=== PATIENT | male | born 1975 | race Caucasian/White ===

== ENCOUNTER 2016-10-12 12:05 | Emergency (ER) | payer BC ==
[2016-10-12] MEDS ORDERED: KETOROLAC 30 MG/ML VIAL (J1885) As Ordered ONE (13:00)
[2016-10-12] MEDS ORDERED: ONDANSETRON 4MG/2ML VIAL (J2405) As Ordered ONE (13:00)
[2016-10-12 13:23] LABS: BASO # 0.1 K/mm3 (0.0-0.2); BASO % 0.6 % (0.0-1.0); EOS # 0.3 K/mm3 (0.0-0.50); EOS % 2.4 % (0.0-3.0); LARGE UNSTAINED CELL # 0.1 K/mm3 (0.0-0.4); LARGE UNSTAINED CELL % 1.3 % (0.0-4.0); LYMPH # 2.3 K/mm3 (1.5-4.5); MEAN CORPUSCULAR HEMOGLOBIN 30.1 pg (27.0-33.0); MEAN CORPUSCULAR HGB CONC 34.9 g/dl (32.0-36.5); MEAN CORPUSCULAR VOLUME 86.2 fl (80.0-96.0); MONO # 0.6 K/mm3 (0.0-0.8); MONO % 4.9 % (0.0-5.0); NEUTROPHILS # 7.8 K/mm3 (1.8-7.7); NEUTROPHILS % 69.7 % (36.0-66.0); PLATELET COUNT, AUTOMATED 196 k/mm3 (150-450); RED CELL DISTRIBUTION WIDTH 12.6 % (11.5-14.5); WHITE BLOOD COUNT 11.1 K/mm3 (4.0-10.0)
--- NOTE | 2016-10-12 13:26 | REP ---
Clinical: Renal colic and right flank pain. Findings: Lung bases clear. Visualized heart and pericardium normal. Fatty infiltration to the liver. Spleen, pancreas, gallbladder, bilateral adrenal glands and kidneys are normal for noncontrast evaluation. Specifically, no perinephric stranding, hydroureteronephrosis, intrarenal or obstructing ureteral calculi noted. Bilateral ureters and bladder are normal. The enteric system is without obstruction or acute inflammatory process. Normal terminal ileum and appendix are identified in the right lower quadrant. Pelvis demonstrates normal bladder and age appropriate prostate/seminal vesicles. No pelvic fluid or ascites. No free air. No adenopathy. Surrounding musculoskeletal structures intact. Impression: Fatty infiltration to the liver. No acute intra-abdominal or pelvic pathology appreciated. Signed by Sterling Yadav MD 10/12/2016 01:18 P
[2016-10-12 13:35] LABS: ALBUMIN 4.4 GM/DL (3.2-5.2); ALBUMIN/GLOBULIN RATIO 1.16 (1.00-1.93); ALKALINE PHOSPHATASE 74 U/L (45-117); ALT/SGPT 87 U/L (12-78); AMYLASE 37 U/L (25-115); ANION GAP 8 MEQ/L (8-16); AST/SGOT 31 U/L (15-37); BILIRUBIN,DIRECT < 0.1 MG/DL (0.0-0.2); BILIRUBIN,TOTAL 0.4 MG/DL (0.2-1.0); BLOOD UREA NITROGEN 18 MG/DL (7-18); CALCIUM LEVEL 8.8 MG/DL (8.5-10.1); CARBON DIOXIDE LEVEL 27 MEQ/L (21-32); CHLORIDE LEVEL 106 MEQ/L (98-107); GLOMERULAR FILTRATION RATE > 60.0 (>60); GLUCOSE, FASTING 83 MG/DL (70-105); POTASSIUM SERUM 3.8 MEQ/L (3.5-5.1); SODIUM LEVEL 141 MEQ/L (136-145); TOTAL PROTEIN 8.2 GM/DL (6.4-8.2)
--- NOTE | 2016-10-12 15:27 | EDDOCDS ---
Nurse's Notes [facility] Name: Baljinder Monson Age: 40 yrs Sex: Male : 1975 Arrival Date: 10/12/2016 Time: 12:05 Bed I3 / M3 Private MD: Amauri - Complete Info On Cds Diagnosis: Lower abdominal pain, unspecified-RLQ with Right Flankl Pain;Fatty (change of) liver, not elsewhere classified Presentation: 10/12 12:08 Presenting complaint: Patient states: Right lower back pain radiates to Right lower rs3 quadrant, right leg, tingling in right leg. denies numbness. no known injury. Acute neurological deficits are not present. Mechanism of Injury: No Mechanism of Injury. Adult Sepsis Screening: The patient does not have new or worsening altered mentation. Patient's respiratory rate is less than 22. Systolic blood pressure is greater than 100. Patient has a qSOFA score of 0- Negative Sepsis Screen. Suicide/Homicide risk assessment- the patient denies having any suicidal and/or homicidal ideations and does not present with any other emotional, behavioral or mental health complaints. Status: Patient is not a service station manager or dependent. Transition of care: patient was not received from another setting of care. 12:08 Acuity: SURJIT Level 4 rs3 12:08 Method Of Arrival: Walkin/Carried/Asstd rs3 12:47 Acuity level changed due to complexity of care. jo3 12:47 Acuity: SURJIT Level 3 jo3 Triage Assessment: 12:10 General: Appears in no apparent distress. Pain: Location: lumbar area. HIV screening NA rs3 for this visit Offered previously. Musculoskeletal: Reports Pain is 7 out of 10 on a pain scale. Historical: - Allergies: no known allergies; - Home Meds: 1. Protonix 40 mg Oral TbEC once daily - PMHx: GERD; - PSHx: Hernia repair- Right inguinal; - Social history: Smoking status: Patient states was never smoker of tobacco. No barriers to communication noted, The patient speaks fluent Filipino. - Family history: Not pertinent. - : The pt / caregiver states he / she is not on anticoagulants. Home medication list is obtained from the patient. - Exposure Risk Screening:: None identified. Screenin:45 Screening information is obtained from the patient. Fall risk: No risks identified. mk4 Assistance ADL's: requires no assistance with activities of daily living. Abuse/DV Screen: The patient / caregiver reports he/she is: not in a situation that causes fear, pain or injury. Nutritional screening: No deficits noted. Advance Directives: Currently, there is no health care proxy. There is no active DNR order. There is no living will. There is no Power of Line Helper. Advance directive information has not previously been placed in an [facility] medical record. Further advance directive information is declined. home support is adequate. Assessment: 12:45 General: Appears uncomfortable. Pain: Location: lumbar area Pain currently is 10 out of mk4 10 on a pain scale. Pain began 2-3 days ago. Neurological: Level of Consciousness is awake, alert. : Denies inability to void, incontinence. Musculoskeletal: No deficits noted. 13:40 General:. mk4 14:48 Reassessment: Patient states feeling better. Patient states symptoms have improved. mk4 General: Appears in no apparent distress, comfortable. 15:25 Reassessment: Patient appears in no apparent distress at this time. Pain: Pain kr3 currently is 2 out of 10 on a pain scale. Respiratory: Respiratory effort is even, unlabored. Derm: Skin is normal. Vital Signs: 12:07 BP 147 / 66 RA Sitting (auto/lg); Pulse 82; Resp 16; Temp 98.8(O); Pulse Ox 94% on R/A; b Weight 108.86 kg (R); Height 5 ft. 11 in. (180.34 cm) (R); Pain 8/10; 15:23 Pain 2/10; kr3 15:24 BP 136 / 77; Pulse 58; Resp 16; Temp 98.2(O); Pulse Ox 96% on R/A; Pain 2/10; kr3 12:07 Body Mass Index 33.47 (108.86 kg, 180.34 cm) [facility] Vitals: 12:07 Log In Time: October 12, 2016 at 12:05. [facility] ED Course: 12:06 Patient visited by Leyda Simmons PCA. bnb 12:06 Patient moved to Waiting bnb 12:07 Other - Complete Info On Cds is Private Physician. bnb 12:08 Patient moved to Pre RCE bnb 12:10 Triage Initiated rs3 12:34 Patient moved to Triage 1 jb5 12:39 [facility] ef1 12:39 Spike Garcia MD is Attending Physician. ef1 12:39 Patient visited by Lilliana Bai PA-C. ef1 12:44 Patient moved to I3 / M3 jb5 12:45 Inserted saline lock: 20 gauge in left antecubital area. mk4 12:45 No procedures done that require assistance. mk4 12:50 Urinalysis Sent. mk4 12:50 Urine Culture Sent. mk4 12:59 Amylase Sent. mk4 12:59 Basic Metabolic Profile Sent. mk4 12:59 CBC with Diff Sent. mk4 12:59 Lipase Sent. mk4 12:59 Liver Profile Sent. mk4 13:17 Patient visited by Lilliana Bai PA-C. ef1 13:31 [facility] Payment Agreement was scanned into [employer] and attached to record. mm15 13:38 Patient visited by Lilliana Bai PA-C. ef1 14:08 CT ABD & PELVIS: No Contrast Returned. EDMS 14:18 Patient visited by Lilliana Bai PA-C. ef1 14:50 Patient visited by Lilliana Bai PA-C. ef1 15:08 [facility] is Referral Physician. ef1 15:08 Chapincito Peacock MD is Referral Physician. ef1 15:24 Discontinued lock intact, bleeding controlled, pressure dressing applied, No kr3 redness/swelling at site. 15:25 The patient / caregiver is instructed regarding the plan of care and ED course. kr3 Accompanied by Family Member, Patient has correct armband on for positive identification. Placed in gown. Bed in low position. Call light in reach. Side rails up X 1. Administered Medications: 13:00 Drug: NS 0.9% 1000 ml Route: IV; Rate: bolus; Site: left antecubital; mk4 15:23 Follow up: IV Status: Infusion discontinued; IV Intake: 100ml kr3 13:00 Drug: Ondansetron 4 mg Route: IVP; Site: left antecubital; mk4 13:00 Drug: ketorolac 30 mg [ketorolac 30 mg/mL (1 mL) injection solution (1 mL)] Route: IVP; mk4 Site: left antecubital; 15:23 Follow up: Pain 10/06 Adult; Response: Pain is decreased kr3 Intake: 15:23 IV: 100.00ml; Total: 100.00ml. kr3 Order Results: Lab Order: Amylase; SPEC'10/12/16 12:56 Test: AMYLASE; Value: 37; Range: 25-115; Units: U/L; Status: F Lab Order: Basic Metabolic Profile; SPEC10/12/16 12:56 Test: GLUCOSE, FASTING; Value: 83; Range: 70-105; Units: MG/DL; Status: F Test: BLOOD UREA NITROGEN; Value: 18; Range: 7-18; Units: MG/DL; Status: F Test: CREATININE FOR GFR; Value: 1.00; Range: 0.70-1.30; Units: MG/DL; Status: F Test: GLOMERULAR FILTRATION RATE; Value: > 60.0; Range: >60; Status: F Test: SODIUM LEVEL; Value: 141; Range: 136-145; Units: MEQ/L; Status: F Test: POTASSIUM SERUM; Value: 3.8; Range: 3.5-5.1; Units: MEQ/L; Status: F Test: CHLORIDE LEVEL; Value: 106; Range: 98-107; Units: MEQ/L; Status: F Test: CARBON DIOXIDE LEVEL; Value: 27; Range: 21-32; Units: MEQ/L; Status: F Test: ANION GAP; Value: 8; Range: 8-16; Units: MEQ/L; Status: F Test: CALCIUM LEVEL; Value: 8.8; Range: 8.5-10.1; Units: MG/DL; Status: F Test Note: ; Units are mL/min/1.73 m2 Chronic Kidney Disease Staging per NKF: Stage I & II GFR >=60 Normal to Mildly Decreased Stage III GFR 30-59 Moderately Decreased Stage IV GFR 15-29 Severely Decreased Stage V GFR <15 Very Little GFR Left ESRD GFR <15 on INSURANCE COMPLIANCE ANALYST Lab Order: CBC with Diff; SPEC10/12/16 12:56 Test: WHITE BLOOD COUNT; Value: 11.1; Range: 4.0-10.0; Abnormal: Above high normal; Units: K/mm3; Status: F Test: RED BLOOD COUNT; Value: 5.44; Range: 4.30-6.10; Units: M/mm3; Status: F Test: HEMOGLOBIN; Value: 16.3; Range: 14.0-18.0; Units: g/dl; Status: F Test: HEMATOCRIT; Value: 46.8; Range: 42.0-52.0; Units: %; Status: F Test: MEAN CORPUSCULAR VOLUME; Value: 86.2; Range: 80.0-96.0; Units: fl; Status: F Test: MEAN CORPUSCULAR HEMOGLOBIN; Value: 30.1; Range: 27.0-33.0; Units: pg; Status: F Test: MEAN CORPUSCULAR HGB CONC; Value: 34.9; Range: 32.0-36.5; Units: g/dl; Status: F Test: RED CELL DISTRIBUTION WIDTH; Value: 12.6; Range: 11.5-14.5; Units: %; Status: F Test: PLATELET COUNT, AUTOMATED; Value: 196; Range: 150-450; Units: k/mm3; Status: F Test: NEUTROPHILS %; Value: 69.7; Range: 36.0-66.0; Abnormal: Above high normal; Units: %; Status: F Test: LYMPH %; Value: 21.0; Range: 24.0-44.0; Abnormal: Below low normal; Units: %; Status: F Test: MONO %; Value: 4.9; Range: 0.0-5.0; Units: %; Status: F Test: EOS %; Value: 2.4; Range: 0.0-3.0; Units: %; Status: F Test: BASO %; Value: 0.6; Range: 0.0-1.0; Units: %; Status: F Test: LARGE UNSTAINED CELL %; Value: 1.3; Range: 0.0-4.0; Units: %; Status: F Test: NEUTROPHILS #; Value: 7.8; Range: 1.8-7.7; Abnormal: Above high normal; Units: K/mm3; Status: F Test: LYMPH #; Value: 2.3; Range: 1.5-4.5; Units: K/mm3; Status: F Test: MONO #; Value: 0.6; Range: 0.0-0.8; Units: K/mm3; Status: F Test: EOS #; Value: 0.3; Range: 0.0-0.50; Units: K/mm3; Status: F Test: BASO #; Value: 0.1; Range: 0.0-0.2; Units: K/mm3; Status: F Test: LARGE UNSTAINED CELL #; Value: 0.1; Range: 0.0-0.4; Units: K/mm3; Status: F Lab Order: Lipase; [facility] 10/12/16 12:56 Test: LIPASE; Value: 156; Range: 73-393; Units: U/L; Status: F Lab Order: Liver Profile; [facility] 10/12/16 12:56 Test: AST/SGOT; Value: 31; Range: 15-37; Units: U/L; Status: F Test: ALT/SGPT; Value: 87; Range: 12-78; Abnormal: Above high normal; Units: U/L; Status: F Test: ALKALINE PHOSPHATASE; Value: 74; Range: 45-117; Units: U/L; Status: F Test: BILIRUBIN,TOTAL; Value: 0.4; Range: 0.2-1.0; Units: MG/DL; Status: F Test: BILIRUBIN,DIRECT; Value: < 0.1; Range: 0.0-0.2; Units: MG/DL; Status: F Test: TOTAL PROTEIN; Value: 8.2; Range: 6.4-8.2; Units: GM/DL; Status: F Test: ALBUMIN; Value: 4.4; Range: 3.2-5.2; Units: GM/DL; Status: F Test: ALBUMIN/GLOBULIN RATIO; Value: 1.16; Range: 1.00-1.93; Status: F Lab Order: Urinalysis; [facility] 10/12/16 12:48 Test: APPEARANCE, URINE; Value: CLEAR; Range: CLEAR; Status: F Test: COLOR, URINE; Value: YELLOW; Range: YELLOW; Status: F Test: PH,URINE; Value: 5.0; Range: 5.0-9.0; Units: UNITS; Status: F Test: SPECIFIC GRAVITY URINE AUTO; Value: 1.025; Range: 1.002-1.035; Status: F Test: PROTEIN, URINE AUTO; Value: NEGATIVE; Range: NEGATIVE; Units: mg/dL; Status: F Test: GLUCOSE, URINE (UA) AUTO; Value: NEGATIVE; Range: NEGATIVE; Units: mg/dL; Status: F Test: KETONE, URINE AUTO; Value: NEGATIVE; Range: NEGATIVE; Units: mg/dL; Status: F Test: UROBILINOGEN, URINE AUTO; Value: 0.2; Range: 0.0-2.0; Units: mg/dL; Status: F Test: BILIRUBIN, URINE AUTO; Value: NEGATIVE; Range: NEGATIVE; Status: F Test: NITRITE, URINE AUTO; Value: NEGATIVE; Range: NEGATIVE; Status: F Test: LEUKOCYTE ESTERASE, URINE AUTO; Value: NEGATIVE; Range: NEGATIVE; Status: F Test: BLOOD, URINE BLOOD; Value: NEGATIVE; Range: NEGATIVE; Status: F Test: WBC, URINE AUTO; Value: 1; Range: 0-3; Units: /HPF; Status: F Test: RBC, URINE AUTO; Value: 1; Range: 0-3; Units: /HPF; Status: F Test: BACTERIA, URINE AUTO; Value: NEGATIVE; Range: NEGATIVE; Status: F Test: SQUAMOUS EPITHELIAL CELL UR AU; Value: 0; Range: 0-6; Units: /HPF; Status: F Test: MUCUS, URINE; Value: SMALL; Range: NEGATIVE; Status: F Test: HYALINE CAST, URINE AUTO; Value: 0; Range: 0-1; Units: /LPF; Status: F Radiology Order: CT ABD & PELVIS: No Contrast Test: CT ABD & PELVIS: No Contrast REASON FOR EXAMINATION: Renal colic; Clinical: Renal colic and right flank pain.; ; Findings:; Lung bases clear. Visualized heart and pericardium normal.; ; Fatty infiltration to the liver. Spleen, pancreas, gallbladder, bilateral; adrenal glands and kidneys are normal for noncontrast evaluation. Specifically,; no perinephric stranding, hydroureteronephrosis, intrarenal or obstructing; ureteral calculi noted. Bilateral ureters and bladder are normal. The enteric; system is without obstruction or acute inflammatory process. Normal terminal; ileum and appendix are identified in the right lower quadrant. Pelvis; demonstrates normal bladder and age appropriate prostate/seminal vesicles. No; pelvic fluid or ascites. No free air. No adenopathy. Surrounding; musculoskeletal structures intact.; ; Impression:; Fatty infiltration to the liver.; No acute intra-abdominal or pelvic pathology appreciated.; ; ; Signed by; Sterling Yadav MD 10/12/2016 01:18 P; Outcome: 12:45 Discharge Assessment:. mk4 14:48 Discharge Assessment: patient administered narcotics - no. mk4 15:09 Discharge ordered by Provider. ef1 15:24 The following High Risk Discharge criteria are identified: None. Discharged to home kr3 ambulatory, with family. Condition: stable. Discharge instructions given to patient, Instructed on discharge instructions, follow up and referral plans. medication usage, no driving heavy equipment, no drinking with medication, Demonstrated understanding of instructions, medications, Pt was receptive of discharge instructions/ teaching. Prescriptions given X 2, Work note provided to patient. 15:25 CT Study completed. Property sent home with patient. kr3 15:26 Patient left the ED. kr3 Signatures: Dispatcher [employer] EDMS Joslyn OlivaRN RN kr3 Luda Burger, VEHICLE REFINISHER VEHICLE REFINISHER jb5 Felicitas GandhiRN RN [id number] Lilliana Bai, PA-C PA-C ef1 Nanci LinderRN RN rs3 Mariano Muñoz mm15 Tasha Beckwith RN RN mk4 Leyda Simmons, VEHICLE REFINISHER VEHICLE REFINISHER bnb Corrections: (The following items were deleted from the chart) 12:10 12:10 PSHx: none; rs3 rs3 MTDD
--- NOTE | 2016-10-12 15:27 | EDDOCDS ---
Physician Documentation [facility] Name: Baljinder Monson Age: 40 yrs Sex: Male : 1975 Arrival Date: 10/12/2016 Time: 12:05 Bed I3 / M3 Private MD: Other - Complete Info On Cds Disposition: 10/12/16 15:09 Discharged to Home/Self Care. Impression: Lower abdominal pain, unspecified - RLQ with Right Flankl Pain, Fatty (change of) liver, not elsewhere classified. - Condition is Stable. - Discharge Instructions: Abdominal Pain, Adult, [id number], Flank Pain, [id number]. - Prescriptions for Naprosyn 500 mg Oral Tablet - take 1 tablet by ORAL route 2 times per day take with food; 30 tablet. [place] 5- 325 mg Oral Tablet - take 1 tablet by ORAL route every 6 hours As needed MDD: 4 tabs; 10 tablet. - Work Release Form - 2 day, Referral List Call for Appointment, Medication Reconciliation, Local Pharmacy Hours form. - [facility] ; When: 1 - 2 days; Reason: Recheck today's complaints, Continuance of care. Follow up: Dr. Chapincito Peacock; When: Call to arrange an appointment; Reason: Further diagnostic work-up, Recheck today's complaints, Continuance of care. Follow up: Emergency Department; Reason: Worsening of conditions. - Problem is new. - Symptoms have improved. Historical: - Allergies: no known allergies; - Home Meds: 1. Protonix 40 mg Oral TbEC once daily - PMHx: GERD; - PSHx: Hernia repair- Right inguinal; - Social history: Smoking status: Patient states was never smoker of tobacco. No barriers to communication noted, The patient speaks fluent Omani. - Family history: Not pertinent. - : The pt / caregiver states he / she is not on anticoagulants. Home medication list is obtained from the patient. - Exposure Risk Screening:: None identified. Vital Signs: 10/12 12:07 BP 147 / 66 RA Sitting (auto/lg); Pulse 82; Resp 16; Temp 98.8(O); Pulse Ox 94% on R/A; bnb Weight 108.86 kg / 240 lbs (R); Height 5 ft. 11 in. (180.34 cm) (R); Pain 8/10; 15:23 Pain 2/10; kr3 15:24 BP 136 / 77; Pulse 58; Resp 16; Temp 98.2(O); Pulse Ox 96% on R/A; Pain 2/10; kr3 12:07 Body Mass Index 33.47 (108.86 kg, 180.34 cm) bnb MDM: 12:43 NS 0.9% 1000 ml IV at bolus once ordered. ef1 12:44 Ondansetron 4 mg IVP once ordered. ef1 12:44 ketorolac 30 mg IVP once ordered. ef1 12:44 IV Saline Lock ordered. ef1 12:44 Undress patient appropriately for examination ordered. ef1 12:44 Amylase Ordered. EDMS 12:44 Basic Metabolic Profile Ordered. EDMS 12:44 CBC with Diff Ordered. EDMS 12:44 Lipase Ordered. EDMS 12:44 Liver Profile Ordered. EDMS 12:44 Urinalysis Ordered. EDMS 12:44 Urine Culture Ordered. EDMS 12:44 CT ABD & PELVIS: No Contrast Ordered. EDMS 12:45 NOTHING BY MOUTH+DIET ordered. EDMS 13:18 Urinalysis Reviewed. ef1 13:22 Financial registration complete. mm15 13:31 [facility] Payment Agreement was scanned into [employer] and attached to record. mm15 13:38 CBC with Diff Reviewed. ef1 13:38 Liver Profile Reviewed. ef1 13:38 Amylase Reviewed. ef1 13:38 Basic Metabolic Profile Reviewed. ef1 13:38 Lipase Reviewed. ef1 Administered Medications: 13:00 Drug: NS 0.9% 1000 ml Route: IV; Rate: bolus; Site: left antecubital; mk4 15:23 Follow up: IV Status: Infusion discontinued; IV Intake: 100ml kr3 13:00 Drug: Ondansetron 4 mg Route: IVP; Site: left antecubital; mk4 13:00 Drug: ketorolac 30 mg [ketorolac 30 mg/mL (1 mL) injection solution (1 mL)] Route: IVP; mk4 Site: left antecubital; 15:23 Follow up: Pain 2/10 Adult; Response: Pain is decreased kr3 Signatures: Dispatcher [employer] EDMS Joslyn lOiva,PETER RN kr3 Lilliana Bai PA-C PAVanda ef1 Nanci Linder RN RN rs3 Mariano Muñoz mm15 Tasha Beckwith RN RN mk4 The chart was reviewed and I authenticate all verbal orders and agree with the evaluation and treatment provided.Corrections: (The following items were deleted from the chart) 12:10 12:10 PSHx: none; rs3 rs3 Attachments: 13:31 [facility] Payment Agreement mm15 MTDD
--- NOTE | 2016-10-14 16:27 | EDDOCDS ---
Physician Documentation [facility] Name: Baljinder Monson Age: 40 yrs Sex: Male : 1975 Arrival Date: 10/12/2016 Time: 12:05 Bed I3 / M3 Private MD: Other - Complete Info On Cds Disposition: 10/12/16 15:09 Discharged to Home/Self Care. Impression: Lower abdominal pain, unspecified - RLQ with Right Flankl Pain, Fatty (change of) liver, not elsewhere classified. - Condition is Stable. - Discharge Instructions: Abdominal Pain, Adult, Ywlt-nr-Yvar, Flank Pain, Ohtt-cb-[id number]. - Prescriptions for Naprosyn 500 mg Oral Tablet - take 1 tablet by ORAL route 2 times per day take with food; 30 tablet. [place] 5- 325 mg Oral Tablet - take 1 tablet by ORAL route every 6 hours As needed MDD: 4 tabs; 10 tablet. - Work Release Form - 2 day, Referral List Call for Appointment, Medication Reconciliation, Local Pharmacy Hours form. - [facility] ; When: 1 - 2 days; Reason: Recheck today's complaints, Continuance of care. Follow up: Dr. Chapincito Peacock; When: Call to arrange an appointment; Reason: Further diagnostic work-up, Recheck today's complaints, Continuance of care. Follow up: Emergency Department; Reason: Worsening of conditions. - Problem is new. - Symptoms have improved. Historical: - Allergies: no known allergies; - Home Meds: 1. Protonix 40 mg Oral TbEC once daily - PMHx: GERD; - PSHx: Hernia repair- Right inguinal; - Social history: Smoking status: Patient states was never smoker of tobacco. No barriers to communication noted, The patient speaks fluent [place]. - Family history: Not pertinent. - : The pt / caregiver states he / she is not on anticoagulants. Home medication list is obtained from the patient. - Exposure Risk Screening:: None identified. Vital Signs: 10/12 12:07 BP 147 / 66 RA Sitting (auto/lg); Pulse 82; Resp 16; Temp 98.8(O); Pulse Ox 94% on R/A; bnb Weight 108.86 kg / 240 lbs (R); Height 5 ft. 11 in. (180.34 cm) (R); Pain 8/10; 15:23 Pain 2/10; kr3 15:24 BP 136 / 77; Pulse 58; Resp 16; Temp 98.2(O); Pulse Ox 96% on R/A; Pain 2/10; kr3 12:07 Body Mass Index 33.47 (108.86 kg, 180.34 cm) bnb MDM: 12:43 NS 0.9% 1000 ml IV at bolus once ordered. ef1 12:44 Ondansetron 4 mg IVP once ordered. ef1 12:44 ketorolac 30 mg IVP once ordered. ef1 12:44 IV Saline Lock ordered. ef1 12:44 Undress patient appropriately for examination ordered. ef1 12:44 Amylase Ordered. EDMS 12:44 Basic Metabolic Profile Ordered. EDMS 12:44 CBC with Diff Ordered. EDMS 12:44 Lipase Ordered. EDMS 12:44 Liver Profile Ordered. EDMS 12:44 Urinalysis Ordered. EDMS 12:44 Urine Culture Ordered. EDMS 12:44 CT ABD & PELVIS: No Contrast Ordered. EDMS 12:45 NOTHING BY MOUTH+DIET ordered. EDMS 13:18 Urinalysis Reviewed. ef1 13:22 Financial registration complete. mm15 13:31 [facility] Payment Agreement was scanned into [employer] and attached to record. mm15 13:38 CBC with Diff Reviewed. ef1 13:38 Liver Profile Reviewed. ef1 13:38 Amylase Reviewed. ef1 13:38 Basic Metabolic Profile Reviewed. ef1 13:38 Lipase Reviewed. ef1 10/13 10:57 T-Sheet-- Draft Copy was scanned into [employer] and attached to record. gb 10:57 Radiology Report was scanned into [employer] and attached to record. gb Administered Medications: 10/12 13:00 Drug: NS 0.9% 1000 ml Route: IV; Rate: bolus; Site: left antecubital; mk4 15:23 Follow up: IV Status: Infusion discontinued; IV Intake: 100ml kr3 13:00 Drug: Ondansetron 4 mg Route: IVP; Site: left antecubital; mk4 13:00 Drug: ketorolac 30 mg [ketorolac 30 mg/mL (1 mL) injection solution (1 mL)] Route: IVP; mk4 Site: left antecubital; 15:23 Follow up: Pain 2/10 Adult; Response: Pain is decreased kr3 Signatures: Dispatcher [employer] EDDanni Thompson, Reg Reg gb Joslyn Oliva,RN RN kr3 Lilliana Bai PA-C PA-C ef1 Nanci Linder RN RN rs3 Mariano Muñoz mm15 Tasha Beckwith RN RN mk4 The chart was reviewed and I authenticate all verbal orders and agree with the evaluation and treatment provided.Corrections: (The following items were deleted from the chart) 12:10 12:10 PSHx: none; rs3 rs3 Attachments: 13:31 [facility] Payment Agreement mm15 10/13 10:57 T-Sheet-- Draft Copy gb Chart Complete MTDD
--- NOTE | 2016-10-14 16:27 | EDDOCDS ---
Nurse's Notes [facility] Name: Baljinder Monson Age: 40 yrs Sex: Male : 1975 Arrival Date: 10/12/2016 Time: 12:05 Bed I3 / M3 Private MD: Amauri - Complete Info On Cds Diagnosis: Lower abdominal pain, unspecified-RLQ with Right Flankl Pain;Fatty (change of) liver, not elsewhere classified Presentation: 10/12 12:08 Presenting complaint: Patient states: Right lower back pain radiates to Right lower rs3 quadrant, right leg, tingling in right leg. denies numbness. no known injury. Acute neurological deficits are not present. Mechanism of Injury: No Mechanism of Injury. Adult Sepsis Screening: The patient does not have new or worsening altered mentation. Patient's respiratory rate is less than 22. Systolic blood pressure is greater than 100. Patient has a qSOFA score of 0- Negative Sepsis Screen. Suicide/Homicide risk assessment- the patient denies having any suicidal and/or homicidal ideations and does not present with any other emotional, behavioral or mental health complaints. Status: Patient is not a office services assistant or dependent. Transition of care: patient was not received from another setting of care. 12:08 Acuity: SURJIT Level 4 rs3 12:08 Method Of Arrival: Walkin/Carried/Asstd rs3 12:47 Acuity level changed due to complexity of care. jo3 12:47 Acuity: SURJIT Level 3 jo3 Triage Assessment: 12:10 General: Appears in no apparent distress. Pain: Location: lumbar area. HIV screening NA rs3 for this visit Offered previously. Musculoskeletal: Reports Pain is 7 out of 10 on a pain scale. Historical: - Allergies: no known allergies; - Home Meds: 1. Protonix 40 mg Oral TbEC once daily - PMHx: GERD; - PSHx: Hernia repair- Right inguinal; - Social history: Smoking status: Patient states was never smoker of tobacco. No barriers to communication noted, The patient speaks fluent Lao. - Family history: Not pertinent. - : The pt / caregiver states he / she is not on anticoagulants. Home medication list is obtained from the patient. - Exposure Risk Screening:: None identified. Screenin:45 Screening information is obtained from the patient. Fall risk: No risks identified. mk4 Assistance ADL's: requires no assistance with activities of daily living. Abuse/DV Screen: The patient / caregiver reports he/she is: not in a situation that causes fear, pain or injury. Nutritional screening: No deficits noted. Advance Directives: Currently, there is no health care proxy. There is no active DNR order. There is no living will. 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 Advance directive information has not previously been placed in an [facility] medical record. Further advance directive information is declined. home support is adequate. Assessment: 12:45 General: Appears uncomfortable. Pain: Location: lumbar area Pain currently is 10 out of mk4 10 on a pain scale. Pain began 2-3 days ago. Neurological: Level of Consciousness is awake, alert. : Denies inability to void, incontinence. Musculoskeletal: No deficits noted. 13:40 General:. mk4 14:48 Reassessment: Patient states feeling better. Patient states symptoms have improved. mk4 General: Appears in no apparent distress, comfortable. 15:25 Reassessment: Patient appears in no apparent distress at this time. Pain: Pain kr3 currently is 2 out of 10 on a pain scale. Respiratory: Respiratory effort is even, unlabored. Derm: Skin is normal. Vital Signs: 12:07 BP 147 / 66 RA Sitting (auto/lg); Pulse 82; Resp 16; Temp 98.8(O); Pulse Ox 94% on R/A; b Weight 108.86 kg (R); Height 5 ft. 11 in. (180.34 cm) (R); Pain 8/10; 15:23 Pain 2/10; kr3 15:24 BP 136 / 77; Pulse 58; Resp 16; Temp 98.2(O); Pulse Ox 96% on R/A; Pain 2/10; kr3 12:07 Body Mass Index 33.47 (108.86 kg, 180.34 cm) [facility] Vitals: 12:07 Log In Time: October 12, 2016 at 12:05. [facility] ED Course: 12:06 Patient visited by Leyad Simmons PCA. bnb 12:06 Patient moved to Waiting bnb 12:07 Other - Complete Info On Cds is Private Physician. bnb 12:08 Patient moved to Pre RCE bnb 12:10 Triage Initiated rs3 12:34 Patient moved to Triage 1 jb5 12:39 [facility] ef1 12:39 Spike Garcia MD is Attending Physician. ef1 12:39 Patient visited by Lilliana Bai PA-C. ef1 12:44 Patient moved to I3 / M3 jb5 12:45 Inserted saline lock: 20 gauge in left antecubital area. mk4 12:45 No procedures done that require assistance. mk4 12:50 Urinalysis Sent. mk4 12:50 Urine Culture Sent. mk4 12:59 Amylase Sent. mk4 12:59 Basic Metabolic Profile Sent. mk4 12:59 CBC with Diff Sent. mk4 12:59 Lipase Sent. mk4 12:59 Liver Profile Sent. mk4 13:17 Patient visited by Lilliana Bai PA-C. ef1 13:31 [facility] Payment Agreement was scanned into [employer] and attached to record. mm15 13:38 Patient visited by Lilliana Bai PA-C. ef1 14:08 CT ABD & PELVIS: No Contrast Returned. EDMS 14:18 Patient visited by Lilliana Bai PA-C. ef1 14:50 Patient visited by Lilliana Bai PA-C. ef1 15:08 [facility] is Referral Physician. ef1 15:08 Chapincito Peacock MD is Referral Physician. ef1 15:24 Discontinued lock intact, bleeding controlled, pressure dressing applied, No kr3 redness/swelling at site. 15:25 The patient / caregiver is instructed regarding the plan of care and ED course. kr3 Accompanied by Family Member, Patient has correct armband on for positive identification. Placed in gown. Bed in low position. Call light in reach. Side rails up X 1. 10/13 10:57 T-Sheet-- Draft Copy was scanned into [employer] and attached to record. gb 10:57 Radiology Report was scanned into [employer] and attached to record. gb Administered Medications: 10/12 13:00 Drug: NS 0.9% 1000 ml Route: IV; Rate: bolus; Site: left antecubital; mk4 15:23 Follow up: IV Status: Infusion discontinued; IV Intake: 100ml kr3 13:00 Drug: Ondansetron 4 mg Route: IVP; Site: left antecubital; mk4 13:00 Drug: ketorolac 30 mg [ketorolac 30 mg/mL (1 mL) injection solution (1 mL)] Route: IVP; mk4 Site: left antecubital; 15:23 Follow up: Pain 10 Adult; Response: Pain is decreased kr3 Intake: 15:23 IV: 100.00ml; Total: 100.00ml. kr3 Order Results: Lab Order: Amylase; SPEC'M 10/12/16 12:56 Test: AMYLASE; Value: 37; Range: 25-115; Units: U/L; Status: F Lab Order: Basic Metabolic Profile; SPEC'M 10/12/16 12:56 Test: GLUCOSE, FASTING; Value: 83; Range: 70-105; Units: MG/DL; Status: F Test: BLOOD UREA NITROGEN; Value: 18; Range: 7-18; Units: MG/DL; Status: F Test: CREATININE FOR GFR; Value: 1.00; Range: 0.70-1.30; Units: MG/DL; Status: F Test: GLOMERULAR FILTRATION RATE; Value: > 60.0; Range: >60; Status: F Test: SODIUM LEVEL; Value: 141; Range: 136-145; Units: MEQ/L; Status: F Test: POTASSIUM SERUM; Value: 3.8; Range: 3.5-5.1; Units: MEQ/L; Status: F Test: CHLORIDE LEVEL; Value: 106; Range: 98-107; Units: MEQ/L; Status: F Test: CARBON DIOXIDE LEVEL; Value: 27; Range: 21-32; Units: MEQ/L; Status: F Test: ANION GAP; Value: 8; Range: 8-16; Units: MEQ/L; Status: F Test: CALCIUM LEVEL; Value: 8.8; Range: 8.5-10.1; Units: MG/DL; Status: F Test Note: ; Units are mL/min/1.73 m2 Chronic Kidney Disease Staging per NKF: Stage I & II GFR >=60 Normal to Mildly Decreased Stage III GFR 30-59 Moderately Decreased Stage IV GFR 15-29 Severely Decreased Stage V GFR <15 Very Little GFR Left ESRD GFR <15 on HEAD OF COMMISSION DEPARTMENT Lab Order: CBC with Diff; SPEC'M 10/12/16 12:56 Test: WHITE BLOOD COUNT; Value: 11.1; Range: 4.0-10.0; Abnormal: Above high normal; Units: K/mm3; Status: F Test: RED BLOOD COUNT; Value: 5.44; Range: 4.30-6.10; Units: M/mm3; Status: F Test: HEMOGLOBIN; Value: 16.3; Range: 14.0-18.0; Units: g/dl; Status: F Test: HEMATOCRIT; Value: 46.8; Range: 42.0-52.0; Units: %; Status: F Test: MEAN CORPUSCULAR VOLUME; Value: 86.2; Range: 80.0-96.0; Units: fl; Status: F Test: MEAN CORPUSCULAR HEMOGLOBIN; Value: 30.1; Range: 27.0-33.0; Units: pg; Status: F Test: MEAN CORPUSCULAR HGB CONC; Value: 34.9; Range: 32.0-36.5; Units: g/dl; Status: F Test: RED CELL DISTRIBUTION WIDTH; Value: 12.6; Range: 11.5-14.5; Units: %; Status: F Test: PLATELET COUNT, AUTOMATED; Value: 196; Range: 150-450; Units: k/mm3; Status: F Test: NEUTROPHILS %; Value: 69.7; Range: 36.0-66.0; Abnormal: Above high normal; Units: %; Status: F Test: LYMPH %; Value: 21.0; Range: 24.0-44.0; Abnormal: Below low normal; Units: %; Status: F Test: MONO %; Value: 4.9; Range: 0.0-5.0; Units: %; Status: F Test: EOS %; Value: 2.4; Range: 0.0-3.0; Units: %; Status: F Test: BASO %; Value: 0.6; Range: 0.0-1.0; Units: %; Status: F Test: LARGE UNSTAINED CELL %; Value: 1.3; Range: 0.0-4.0; Units: %; Status: F Test: NEUTROPHILS #; Value: 7.8; Range: 1.8-7.7; Abnormal: Above high normal; Units: K/mm3; Status: F Test: LYMPH #; Value: 2.3; Range: 1.5-4.5; Units: K/mm3; Status: F Test: MONO #; Value: 0.6; Range: 0.0-0.8; Units: K/mm3; Status: F Test: EOS #; Value: 0.3; Range: 0.0-0.50; Units: K/mm3; Status: F Test: BASO #; Value: 0.1; Range: 0.0-0.2; Units: K/mm3; Status: F Test: LARGE UNSTAINED CELL #; Value: 0.1; Range: 0.0-0.4; Units: K/mm3; Status: F Lab Order: Lipase; [facility] 10/12/16 12:56 Test: LIPASE; Value: 156; Range: 73-393; Units: U/L; Status: F Lab Order: Liver Profile; [facility] 10/12/16 12:56 Test: AST/SGOT; Value: 31; Range: 15-37; Units: U/L; Status: F Test: ALT/SGPT; Value: 87; Range: 12-78; Abnormal: Above high normal; Units: U/L; Status: F Test: ALKALINE PHOSPHATASE; Value: 74; Range: 45-117; Units: U/L; Status: F Test: BILIRUBIN,TOTAL; Value: 0.4; Range: 0.2-1.0; Units: MG/DL; Status: F Test: BILIRUBIN,DIRECT; Value: < 0.1; Range: 0.0-0.2; Units: MG/DL; Status: F Test: TOTAL PROTEIN; Value: 8.2; Range: 6.4-8.2; Units: GM/DL; Status: F Test: ALBUMIN; Value: 4.4; Range: 3.2-5.2; Units: GM/DL; Status: F Test: ALBUMIN/GLOBULIN RATIO; Value: 1.16; Range: 1.00-1.93; Status: F Lab Order: Urinalysis; [facility] 10/12/16 12:48 Test: APPEARANCE, URINE; Value: CLEAR; Range: CLEAR; Status: F Test: COLOR, URINE; Value: YELLOW; Range: YELLOW; Status: F Test: PH,URINE; Value: 5.0; Range: 5.0-9.0; Units: UNITS; Status: F Test: SPECIFIC GRAVITY URINE AUTO; Value: 1.025; Range: 1.002-1.035; Status: F Test: PROTEIN, URINE AUTO; Value: NEGATIVE; Range: NEGATIVE; Units: mg/dL; Status: F Test: GLUCOSE, URINE (UA) AUTO; Value: NEGATIVE; Range: NEGATIVE; Units: mg/dL; Status: F Test: KETONE, URINE AUTO; Value: NEGATIVE; Range: NEGATIVE; Units: mg/dL; Status: F Test: UROBILINOGEN, URINE AUTO; Value: 0.2; Range: 0.0-2.0; Units: mg/dL; Status: F Test: BILIRUBIN, URINE AUTO; Value: NEGATIVE; Range: NEGATIVE; Status: F Test: NITRITE, URINE AUTO; Value: NEGATIVE; Range: NEGATIVE; Status: F Test: LEUKOCYTE ESTERASE, URINE AUTO; Value: NEGATIVE; Range: NEGATIVE; Status: F Test: BLOOD, URINE BLOOD; Value: NEGATIVE; Range: NEGATIVE; Status: F Test: WBC, URINE AUTO; Value: 1; Range: 0-3; Units: /HPF; Status: F Test: RBC, URINE AUTO; Value: 1; Range: 0-3; Units: /HPF; Status: F Test: BACTERIA, URINE AUTO; Value: NEGATIVE; Range: NEGATIVE; Status: F Test: SQUAMOUS EPITHELIAL CELL UR AU; Value: 0; Range: 0-6; Units: /HPF; Status: F Test: MUCUS, URINE; Value: SMALL; Range: NEGATIVE; Status: F Test: HYALINE CAST, URINE AUTO; Value: 0; Range: 0-1; Units: /LPF; Status: F Lab Order: Urine Culture; SPEC'M 10/12/16 12:56 Test: URINE CULTURE; Value: <EXTERNAL COMMENT eCWMed> FULL REPORT IN LAB NOTES (eCW and Medent).; Status: F Test: URINE CULTURE; Value: URINE CULTURE RESULT NO GROWTH; Status: F Radiology Order: CT ABD & PELVIS: No Contrast Test: CT ABD & PELVIS: No Contrast REASON FOR EXAMINATION: Renal colic; Clinical: Renal colic and right flank pain.; ; Findings:; Lung bases clear. Visualized heart and pericardium normal.; ; Fatty infiltration to the liver. Spleen, pancreas, gallbladder, bilateral; adrenal glands and kidneys are normal for noncontrast evaluation. Specifically,; no perinephric stranding, hydroureteronephrosis, intrarenal or obstructing; ureteral calculi noted. Bilateral ureters and bladder are normal. The enteric; system is without obstruction or acute inflammatory process. Normal terminal; ileum and appendix are identified in the right lower quadrant. Pelvis; demonstrates normal bladder and age appropriate prostate/seminal vesicles. No; pelvic fluid or ascites. No free air. No adenopathy. Surrounding; musculoskeletal structures intact.; ; Impression:; Fatty infiltration to the liver.; No acute intra-abdominal or pelvic pathology appreciated.; ; ; Signed by; Sterling Yadav MD 10/12/2016 01:18 P; Outcome: 12:45 Discharge Assessment:. mk4 14:48 Discharge Assessment: patient administered narcotics - no. mk4 15:09 Discharge ordered by Provider. ef1 15:24 The following High Risk Discharge criteria are identified: None. Discharged to home kr3 ambulatory, with family. Condition: stable. Discharge instructions given to patient, Instructed on discharge instructions, follow up and referral plans. medication usage, no driving heavy equipment, no drinking with medication, Demonstrated understanding of instructions, medications, Pt was receptive of discharge instructions/ teaching. Prescriptions given X 2, Work note provided to patient. 15:25 CT Study completed. Property sent home with patient. kr3 15:26 Patient left the ED. kr3 Signatures: Dispatcher [employer] EDMS Danni Louis, Reg Reg gb Joslyn Oliva,RN RN kr3 Luda Burger, COMMUTATOR ASSEMBLER COMMUTATOR ASSEMBLER jb5 Felicitas GandhiRN RN Lilliana Barrera, PA-C PA-C ef1 Nanci Linder,RN RN rs3 Mariano Muñoz mm15 Tasha Beckwith RN RN mk4 Leyda Simmons, COMMUTATOR ASSEMBLER COMMUTATOR ASSEMBLER bnb Corrections: (The following items were deleted from the chart) 12:10 12:10 PSHx: none; rs3 rs3 Chart Complete MTDD
--- NOTE | 2016-10-14 16:28 | EDDOCDS ---
Physician Documentation [facility] Name: Baljinder Monson Age: 40 yrs Sex: Male : 1975 Arrival Date: 10/12/2016 Time: 12:05 Bed I3 / M3 Private MD: Other - Complete Info On Cds Disposition: 10/12/16 15:09 Discharged to Home/Self Care. Impression: Lower abdominal pain, unspecified - RLQ with Right Flankl Pain, Fatty (change of) liver, not elsewhere classified. - Condition is Stable. - Discharge Instructions: Abdominal Pain, Adult, [id number], Flank Pain, [id number]. - Prescriptions for Naprosyn 500 mg Oral Tablet - take 1 tablet by ORAL route 2 times per day take with food; 30 tablet. Dustin 5- 325 mg Oral Tablet - take 1 tablet by ORAL route every 6 hours As needed MDD: 4 tabs; 10 tablet. - Work Release Form - 2 day, Referral List Call for Appointment, Medication Reconciliation, Local Pharmacy Hours form. - [facility] ; When: 1 - 2 days; Reason: Recheck today's complaints, Continuance of care. Follow up: Dr. Chapincito Peacock; When: Call to arrange an appointment; Reason: Further diagnostic work-up, Recheck today's complaints, Continuance of care. Follow up: Emergency Department; Reason: Worsening of conditions. - Problem is new. - Symptoms have improved. Historical: - Allergies: no known allergies; - Home Meds: 1. Protonix 40 mg Oral TbEC once daily - PMHx: GERD; - PSHx: Hernia repair- Right inguinal; - Social history: Smoking status: Patient states was never smoker of tobacco. No barriers to communication noted, The patient speaks fluent Belarusian. - Family history: Not pertinent. - : The pt / caregiver states he / she is not on anticoagulants. Home medication list is obtained from the patient. - Exposure Risk Screening:: None identified. Vital Signs: 10/12 12:07 BP 147 / 66 RA Sitting (auto/lg); Pulse 82; Resp 16; Temp 98.8(O); Pulse Ox 94% on R/A; bnb Weight 108.86 kg / 240 lbs (R); Height 5 ft. 11 in. (180.34 cm) (R); Pain 8/10; 15:23 Pain 2/10; kr3 15:24 BP 136 / 77; Pulse 58; Resp 16; Temp 98.2(O); Pulse Ox 96% on R/A; Pain 2/10; kr3 12:07 Body Mass Index 33.47 (108.86 kg, 180.34 cm) bnb MDM: 12:43 NS 0.9% 1000 ml IV at bolus once ordered. ef1 12:44 Ondansetron 4 mg IVP once ordered. ef1 12:44 ketorolac 30 mg IVP once ordered. ef1 12:44 IV Saline Lock ordered. ef1 12:44 Undress patient appropriately for examination ordered. ef1 12:44 Amylase Ordered. EDMS 12:44 Basic Metabolic Profile Ordered. EDMS 12:44 CBC with Diff Ordered. EDMS 12:44 Lipase Ordered. EDMS 12:44 Liver Profile Ordered. EDMS 12:44 Urinalysis Ordered. EDMS 12:44 Urine Culture Ordered. EDMS 12:44 CT ABD & PELVIS: No Contrast Ordered. EDMS 12:45 NOTHING BY MOUTH+DIET ordered. EDMS 13:18 Urinalysis Reviewed. ef1 13:22 Financial registration complete. mm15 13:31 [facility] was scanned into [employer] and attached to record. mm15 13:38 CBC with Diff Reviewed. ef1 13:38 Liver Profile Reviewed. ef1 13:38 Amylase Reviewed. ef1 13:38 Basic Metabolic Profile Reviewed. ef1 13:38 Lipase Reviewed. ef1 10/13 10:57 T-Sheet-- Draft Copy was scanned into [employer] and attached to record. gb 10:57 Radiology Report was scanned into [employer] and attached to record. gb Administered Medications: 10/12 13:00 Drug: NS 0.9% 1000 ml Route: IV; Rate: bolus; Site: left antecubital; mk4 15:23 Follow up: IV Status: Infusion discontinued; IV Intake: 100ml kr3 13:00 Drug: Ondansetron 4 mg Route: IVP; Site: left antecubital; mk4 13:00 Drug: ketorolac 30 mg [ketorolac 30 mg/mL (1 mL) injection solution (1 mL)] Route: IVP; mk4 Site: left antecubital; 15:23 Follow up: Pain 2/10 Adult; Response: Pain is decreased kr3 Signatures: Dispatcher [employer] EDDanni Thompson, Reg Reg gb Joslyn Oliva,RN RN kr3 Lilliana Bai PA-C PA-C ef1 Nanci Linder RN RN rs3 Mariano Muñoz mm15 Tasha Beckwith RN RN mk4 The chart was reviewed and I authenticate all verbal orders and agree with the evaluation and treatment provided.Corrections: (The following items were deleted from the chart) 12:10 12:10 PSHx: none; rs3 rs3 Attachments: 13:31 [facility] Payment Agreement mm15 10/13 10:57 T-Sheet-- Draft Copy gb Chart Complete MTDD
== END 2016-10-12 15:26 | disposition home or self-care (01) ==
LOC: M ED 12:05
DX: R10.31 Right lower quadrant pain (principal); K21.9 Gastro-esophageal reflux disease without esophagitis; Z79.899 Other long term (current) drug therapy
CPT/HCPCS: 36415; 74176; 80048; 80076; 81001; 82150; 83690; 85025; 87086; 96361; 96374; 96375; 99284; J1885; J2405

== ENCOUNTER 2016-12-09 00:01 | Emergency (ER) | payer BC ==
[~2016-12-09] VITALS: Ht 177.8 cm; Wt 103.0 kg
--- NOTE | 2016-12-09 02:30 | REPUSA ---
CLINICAL HISTORY: Loss of consciousness. TECHNIQUE: Multiple axial brain CT scan sections were obtained from base to vertex without contrast a dministration. COMMENTS: The study shows normal configuration of sella turcica. There are no intra or extra-axial collections. There is no mass effect or midline shift. There is no evidence of hematoma formation. No hydrocephal us is present. No abnormal calcifications are noted. No significant abnormalities are seen either in the posterior fossa or supratentorial compartment. The sinuses and mastoid air cells are patent. IMPRESSION: No evidence of acute intracranial pathology. Thank you for your kind referral of this patient.
[2016-12-09 02:45] LABS: ALBUMIN 4.3 GM/DL (3.2-5.2); ALBUMIN/GLOBULIN RATIO 1.39 (1.00-1.93); ALKALINE PHOSPHATASE 80 U/L (45-117); ALT/SGPT 99 U/L (12-78); ANION GAP 11 MEQ/L (8-16); AST/SGOT 36 U/L (15-37); BILIRUBIN,DIRECT < 0.1 MG/DL (0.0-0.2); BILIRUBIN,TOTAL 0.2 MG/DL (0.2-1.0); BLOOD UREA NITROGEN 14 MG/DL (7-18); CALCIUM LEVEL 8.2 MG/DL (8.5-10.1); CARBON DIOXIDE LEVEL 24 MEQ/L (21-32); CHLORIDE LEVEL 109 MEQ/L (98-107); CREATININE FOR GFR 0.96 MG/DL (0.70-1.30); GLOMERULAR FILTRATION RATE > 60.0 (>60); GLUCOSE, FASTING 130 MG/DL (70-105); POTASSIUM SERUM 3.9 MEQ/L (3.5-5.1); SODIUM LEVEL 144 MEQ/L (136-145); TOTAL PROTEIN 7.4 GM/DL (6.4-8.2)
[2016-12-09 05:06] VITALS: BP 130/75
== END 2016-12-09 05:08 | disposition home or self-care (01) ==
LOC: EDBD 00:01 → M ED 00:59
DX: F10.129 Alcohol abuse with intoxication, unspecified (principal)
CPT/HCPCS: 70450; 80048; 80076; 82140; 99284; G0480

== ENCOUNTER → 2017-01-26 | Outpatient (CLI) | payer BC ==
[~2017-01-26] VITALS: Ht 177.8 cm; Wt 104.3 kg
[~2017-01-26] MED LIST: LIDOCAINE 2% INJ 100 MG/5 ML SDV (FOR ANES.) As Ordered ONE; NS 1,000 ML IV ONE; PROPOFOL 200 MG/20 ML VIAL As Ordered ONE; PROT1TAB2 PO; fentaNYL 100 MCG/2 ML INJECTION (J3010) As Ordered ONE
--- NOTE | 2017-01-26 09:54 | ROOR ---
Patient Name: Baljinder Monson Procedure Date: 01/26/2017 9:30 AM Date of : 1975 Age: 41 Room: [facility] Gender: Male Note Status: Finalized Procedure: Upper Endoscopy + Biopsies Indications: Heartburn Providers: Yordy Andrews MD Referring MD: 1. No Referring Physician 1. No Referring Physician, Admin. Requesting Provider: Medicines: Monitored Anesthesia Care Complications: No immediate complications. Procedure: Pre-Anesthesia Assessment: - The heart rate, respiratory rate, oxygen saturations, blood pressure, adequacy of pulmonary ventilation, and response to care were monitored throughout the procedure. The Endoscope was introduced through the mouth, and advanced to the second part of duodenum. The upper GI endoscopy was accomplished without difficulty. The patient tolerated the procedure well. Findings: The Z-line was irregular and was found 40 cm from the incisors. Multiple biopsies were obtained with cold forceps for evaluation to rule out Byrd's Esophagus randomly at the gastroesophageal junction. A small hiatal hernia was present. Mucosal changes including feline appearance were found in the lower third of the esophagus. Biopsies were obtained from the proximal and distal esophagus with cold forceps for histology of suspected eosinophilic esophagitis. No other significant abnormalities were identified in a careful examination of the stomach. The exam of the duodenum was otherwise normal. Impression: - Z-line irregular, 40 cm from the incisors. - Small hiatal hernia. - Esophageal mucosal changes suggestive of eosinophilic esophagitis. Biopsied. - Multiple biopsies were obtained at the gastroesophageal junction. - The examination was otherwise normal. Recommendation: - Patient has a contact number available for emergencies. The signs and symptoms of potential delayed complications were discussed with the patient. Return to normal activities tomorrow. Written discharge instructions were provided to the patient. - High fiber diet. - Discharge patient to home. - Continue present medications. - Follow an antireflux regimen. - Await pathology results. - Telephone GI clinic for pathology results in 1 week. - Check Portal Online for Path Results.([email or web address] - Return to referring physician. - The findings and recommendations were discussed with the patient's family. Yordy Andrews MD Yordy Andrews MD 01/26/2017 9:54:05 AM This report has been signed electronically. Number of Addenda: 0 Note Initiated On: 01/26/2017 9:30 AM Estimated Blood Loss: Estimated blood loss: none.
[2017-01-26 10:09] VITALS: BP 163/92
== END | disposition home or self-care (01) ==
LOC: M OPP 08:23
PROVIDERS: ATTEND Internal Medicine Gastroenterology
DX: K22.8 Other specified diseases of esophagus (principal); K44.9 Diaphragmatic hernia without obstruction or gangrene; K20.9 Esophagitis, unspecified; R06.83 Snoring; Z79.899 Other long term (current) drug therapy
CPT/HCPCS: 43239; 88305; J3010

== ENCOUNTER → 2017-02-19 | Outpatient (CLI) | payer BC ==
[~2017-02-19] MED LIST changes: -LIDOCAINE 2% INJ 100 MG/5 ML SDV (FOR ANES.) As Ordered ONE; -NS 1,000 ML IV ONE; -PROPOFOL 200 MG/20 ML VIAL As Ordered ONE; -fentaNYL 100 MCG/2 ML INJECTION (J3010) As Ordered ONE
--- NOTE | 2017-02-19 12:13 | REP ---
Clinical: Precordial chest pain . Comparison: 11/28/2011. Technique: PA and lateral. Findings: The mediastinum and cardiac silhouette are normal. The lung haider are clear and without acute consolidation, effusion, or pneumothorax. The skeletal structures are intact and normal. Impression: 1. No acute cardiopulmonary process. Signed by Sterling Yadav MD 02/19/2017 08:34 A
== END ==
LOC: M LAB 07:54
PROVIDERS: ATTEND Internal Medicine Cardiovascular Disease
DX: R07.2 Precordial pain (principal); R03.0 Elevated blood-pressure reading, without diagnosis of hypertension

== ENCOUNTER → 2017-04-16 | Outpatient (CLI) | payer BC ==
[2017-04-16 08:45] LABS: ALBUMIN 4.3 GM/DL (3.2-5.2); ALBUMIN/GLOBULIN RATIO 1.59 (1.00-1.93); BILIRUBIN,DIRECT 0.1 MG/DL (0.0-0.2); BILIRUBIN,TOTAL 0.4 MG/DL (0.2-1.0)
== END ==
LOC: M LAB 07:35
PROVIDERS: ATTEND Internal Medicine Cardiovascular Disease
DX: E78.00 Pure hypercholesterolemia, unspecified (principal)

== ENCOUNTER → 2018-01-31 | Outpatient (REF) | payer BC | LOC: M LAB REF 12:10 | DX: L72.3 Sebaceous cyst (principal) | CPT/HCPCS: 87186 ==

== ENCOUNTER → 2018-03-26 | Outpatient (REF) | payer BC ==
[2018-03-26 12:48] LABS: ANION GAP 8 MEQ/L (8-16); BLOOD UREA NITROGEN 20 MG/DL (7-18); CALCIUM LEVEL 9.3 MG/DL (8.5-10.1); CARBON DIOXIDE LEVEL 30 MEQ/L (21-32); CHLORIDE LEVEL 106 MEQ/L (98-107); CHOLESTEROL LEVEL 133 MG/DL (<200); CREATININE FOR GFR 0.94 MG/DL (0.70-1.30); GLOMERULAR FILTRATION RATE > 60.0 (>60); GLUCOSE, FASTING 94 MG/DL (70-100); HDL CHOLESTEROL 50 MG/DL (>40); LDL CHOLESTEROL 68.8 MG/DL (<100); NON-HDL-C 83 MG/DL; POTASSIUM SERUM 4.2 MEQ/L (3.5-5.1); SODIUM LEVEL 144 MEQ/L (136-145); TRIGLYCERIDES LEVEL 71 MG/DL (<150)
[2018-03-26 13:05] LABS: MALB URINE SIEMENS 9.7 MG/L; MAU/CREAT RATIO 6.1 MCG/MG (0.0-30.0)
== END ==
LOC: M SFHCPLAZ 09:00
DX: E78.5 Hyperlipidemia, unspecified (principal); I11.9 Hypertensive heart disease without heart failure
CPT/HCPCS: 80061

== ENCOUNTER → 2018-09-30 | Outpatient (REF) | payer BC ==
[2018-09-30 19:00] LABS: BLOOD UREA NITROGEN 15 MG/DL (7-18); CALCIUM LEVEL 8.7 MG/DL (8.5-10.1); CARBON DIOXIDE LEVEL 28 MEQ/L (21-32); CHLORIDE LEVEL 104 MEQ/L (98-107); GLOMERULAR FILTRATION RATE > 60.0 (>60); GLUCOSE, FASTING 67 MG/DL (70-100); POTASSIUM SERUM 3.9 MEQ/L (3.5-5.1); SODIUM LEVEL 141 MEQ/L (136-145)
== END ==
LOC: M SFHCPLAZ 15:13
PROVIDERS: ATTEND Family Medicine
DX: I11.9 Hypertensive heart disease without heart failure (principal)

== ENCOUNTER → 2019-03-26 | Outpatient (REF) | payer BC | LOC: M SFHCPLAZ 16:44 | PROVIDERS: ATTEND Family Medicine | DX: R23.8 Other skin changes (principal) ==

== ENCOUNTER → 2019-04-02 | Outpatient (REF) | payer BC ==
[2019-04-02 13:05] LABS: ALT/SGPT 49 U/L (12-78); BILIRUBIN,TOTAL 0.5 MG/DL (0.2-1.0); BLOOD UREA NITROGEN 18 MG/DL (7-18); CALCIUM LEVEL 8.7 MG/DL (8.5-10.1); CARBON DIOXIDE LEVEL 29 MEQ/L (21-32); CHLORIDE LEVEL 102 MEQ/L (98-107); CHOLESTEROL LEVEL 118 MG/DL (<200); CHOLESTEROL RISK RATIO 2.681 (<5); CREATININE FOR GFR 0.89 MG/DL (0.70-1.30); GLOMERULAR FILTRATION RATE > 60.0 (>60); GLUCOSE, FASTING 86 MG/DL (70-100); HDL CHOLESTEROL 44 MG/DL (>40); LDL CHOLESTEROL 63 MG/DL (<100); NON-HDL-C 74 MG/DL; POTASSIUM SERUM 3.9 MEQ/L (3.5-5.1); SODIUM LEVEL 136 MEQ/L (136-145); TOTAL PROTEIN 6.9 GM/DL (6.4-8.2); TRIGLYCERIDES LEVEL 57 MG/DL (<150)
[2019-04-02 13:09] LABS: CREATININE, URINE < 13.0 MG/DL; MALB URINE SIEMENS 6.7 MG/L
== END ==
LOC: M SFHCPLAZ 09:08
PROVIDERS: ATTEND Family Medicine
DX: I11.9 Hypertensive heart disease without heart failure (principal); E66.9 Obesity, unspecified; E78.5 Hyperlipidemia, unspecified

== ENCOUNTER → 2019-10-01 | Outpatient (REF) | payer BC ==
[2019-10-01 17:50] LABS: BLOOD UREA NITROGEN 16 MG/DL (7-18); CALCIUM LEVEL 9.5 MG/DL (8.5-10.1); CARBON DIOXIDE LEVEL 30 MEQ/L (21-32); CHLORIDE LEVEL 104 MEQ/L (98-107); CREATININE FOR GFR 1.01 MG/DL (0.70-1.30); GLOMERULAR FILTRATION RATE > 60.0 (>60); GLUCOSE, FASTING 71 MG/DL (70-100); POTASSIUM SERUM 4.1 MEQ/L (3.5-5.1); SODIUM LEVEL 141 MEQ/L (136-145)
== END ==
LOC: M SFHCPLAZ 14:51
PROVIDERS: ATTEND Family Medicine
DX: I11.9 Hypertensive heart disease without heart failure (principal)

== ENCOUNTER → 2020-07-01 | Outpatient (REF) | payer BC ==
[2020-07-01 13:44] LABS: BLOOD UREA NITROGEN 18 MG/DL (7-18); CALCIUM LEVEL 9.3 MG/DL (8.5-10.1); CARBON DIOXIDE LEVEL 28 MEQ/L (21-32); CHLORIDE LEVEL 109 MEQ/L (98-107); CHOLESTEROL LEVEL 147 MG/DL (<200); CHOLESTEROL RISK RATIO 3.127 (<5); CREATININE FOR GFR 1.03 MG/DL (0.70-1.30); GLOMERULAR FILTRATION RATE > 60.0 (>60); GLUCOSE, FASTING 100 MG/DL (70-100); HDL CHOLESTEROL 47 MG/DL (>40); LDL CHOLESTEROL 85 MG/DL (<100); NON-HDL-C 100 MG/DL; POTASSIUM SERUM 4.5 MEQ/L (3.5-5.1); SODIUM LEVEL 141 MEQ/L (136-145); TRIGLYCERIDES LEVEL 75 MG/DL (<150)
[2020-07-01 13:57] LABS: MALB URINE SIEMENS 11.1 MG/L; MAU/CREAT RATIO 7.2 MCG/MG (0.0-30.0)
== END ==
LOC: M SFHCPLAZ 08:32
PROVIDERS: ATTEND Family Medicine
DX: E78.2 Mixed hyperlipidemia (principal); I11.9 Hypertensive heart disease without heart failure

== ENCOUNTER → 2020-12-30 | Outpatient (REF) | payer BC ==
[2020-12-30 16:01] LABS: BLOOD UREA NITROGEN 20 MG/DL (7-18); CALCIUM LEVEL 9.2 MG/DL (8.5-10.1); CARBON DIOXIDE LEVEL 27 MEQ/L (21-32); CHLORIDE LEVEL 112 MEQ/L (98-107); CREATININE FOR GFR 0.92 MG/DL (0.70-1.30); GLOMERULAR FILTRATION RATE > 60.0 (>60); GLUCOSE, FASTING 94 MG/DL (70-100); POTASSIUM SERUM 4.3 MEQ/L (3.5-5.1); SODIUM LEVEL 144 MEQ/L (136-145)
== END ==
LOC: M SFHCPLAZ 13:41
PROVIDERS: ATTEND Family Medicine
DX: I11.9 Hypertensive heart disease without heart failure (principal)

== ENCOUNTER → 2021-07-07 | Outpatient (CLI) | payer BC ==
[2021-07-07 11:28] LABS: BLOOD UREA NITROGEN 20 MG/DL (7-18); CALCIUM LEVEL 9.4 MG/DL (8.5-10.1); CARBON DIOXIDE LEVEL 27 MEQ/L (21-32); CHLORIDE LEVEL 102 MEQ/L (98-107); CHOLESTEROL LEVEL 160 MG/DL (<200); CHOLESTEROL RISK RATIO 3.636 (<5); CREATININE FOR GFR 1.09 MG/DL (0.70-1.30); GLOMERULAR FILTRATION RATE > 60.0 (>60); GLUCOSE, FASTING 99 MG/DL (70-100); HDL CHOLESTEROL 44 MG/DL (>40); LDL CHOLESTEROL 102 MG/DL (<100); NON-HDL-C 116 MG/DL; POTASSIUM SERUM 4.4 MEQ/L (3.5-5.1); SODIUM LEVEL 136 MEQ/L (136-145); TRIGLYCERIDES LEVEL 69 MG/DL (<150)
== END ==
LOC: M PLALAB 07:08
PROVIDERS: ATTEND Family Medicine
DX: I11.9 Hypertensive heart disease without heart failure (principal); E78.2 Mixed hyperlipidemia

== ENCOUNTER → 2021-12-29 | Outpatient (CLI) | payer BC ==
[2021-12-29 10:34] LABS: BLOOD UREA NITROGEN 20 MG/DL (7-18); CALCIUM LEVEL 9.6 MG/DL (8.5-10.1); CARBON DIOXIDE LEVEL 26 MEQ/L (21-32); CHLORIDE LEVEL 108 MEQ/L (98-107); CREATININE FOR GFR 0.88 MG/DL (0.70-1.30); GLOMERULAR FILTRATION RATE > 60.0 (>60); GLUCOSE, FASTING 105 MG/DL (70-100); POTASSIUM SERUM 4.5 MEQ/L (3.5-5.1); SODIUM LEVEL 140 MEQ/L (136-145)
== END ==
LOC: M PLALAB 08:36
PROVIDERS: ATTEND Family Medicine
DX: I11.9 Hypertensive heart disease without heart failure (principal)

== ENCOUNTER 2022-02-13 21:57 | Emergency (ER) | payer BC ==
[~2022-02-13] VITALS: Ht 177.8 cm; Wt 106.7 kg
[2022-02-13] MEDS ORDERED: ATOR1TAB21 PO (22:14)
[2022-02-13] MEDS ORDERED: LISI5TAB11 PO (22:14)
[2022-02-14] MEDS ORDERED: NS 1,000 ML IV ONE (00:20)
[2022-02-14 01:00] LABS: BASO # 0.1 10^3/uL (0.0-0.2); BASO % 0.4 % (0.0-1.0); EOS # 0.1 10^3/uL (0.0-0.5); EOS % 0.3 % (0.0-3.0); HEMATOCRIT 44.6 % (42.0-52.0); HEMOGLOBIN 15.2 g/dl (13.5-17.5); LYMPH % 5.6 % (24.0-44.0); MEAN CORPUSCULAR HEMOGLOBIN 29.6 pg (27.0-33.0); MEAN CORPUSCULAR HGB CONC 34.1 g/dl (32.0-36.5); MEAN CORPUSCULAR VOLUME 86.8 fl (80.0-96.0); MONO # 0.7 10^3/uL (0.0-0.8); MONO % 4.1 % (2.0-8.0); NEUTROPHILS # 15.2 10^3/uL (1.5-8.5); PLATELET COUNT, AUTOMATED 224 10^3/uL (150-450); RED BLOOD COUNT 5.14 10^6/uL (4.30-6.10)
[2022-02-14 01:23] LABS: ALT/SGPT 51 U/L (12-78); BLOOD UREA NITROGEN 25 MG/DL (7-18); CALCIUM LEVEL 9.2 MG/DL (8.5-10.1); CARBON DIOXIDE LEVEL 26 MEQ/L (21-32); CHLORIDE LEVEL 109 MEQ/L (98-107); CREATININE FOR GFR 1.27 MG/DL (0.70-1.30); GLOMERULAR FILTRATION RATE > 60.0 (>60); GLUCOSE, FASTING 138 MG/DL (70-100); SODIUM LEVEL 143 MEQ/L (136-145)
[2022-02-14 01:24] LABS: ALBUMIN 4.4 GM/DL (3.2-5.2); BILIRUBIN,DIRECT < 0.1 MG/DL (0.0-0.2); BILIRUBIN,TOTAL 0.2 MG/DL (0.2-1.0); LIPASE 143 U/L (73-393); TOTAL PROTEIN 7.7 GM/DL (6.4-8.2)
[2022-02-14 01:43] LABS: RSV AMPLIFICATION NEGATIVE (NEGATIVE)
[2022-02-14] MEDS ORDERED: FLOM0.4C39 PO (04:27)
[2022-02-14] MEDS ORDERED: TAMSULOSIN 0.4 MG CAP PO ONE (04:30)
[2022-02-14 05:03] VITALS: BP 136/78
== END 2022-02-14 05:08 | disposition home or self-care (01) ==
LOC: M ED 21:57
DX: N20.1 Calculus of ureter (principal); I10 Essential (primary) hypertension; I25.10 Atherosclerotic heart disease of native coronary artery without angina pectoris; E78.5 Hyperlipidemia, unspecified; I44.7 Left bundle-branch block, unspecified; Z79.899 Other long term (current) drug therapy

== ENCOUNTER → 2022-03-22 | Outpatient (CLI) | payer BC ==
[~2022-03-22] MED LIST changes: +ATOR1TAB21 PO; +FLOM0.4C39 PO; +LISI5TAB11 PO
== END ==
LOC: M LABSMTC 11:16
PROVIDERS: ATTEND Anesthesiology
DX: Z01.812 Encounter for preprocedural laboratory examination (principal); Z20.822 Contact with and (suspected) exposure to COVID-19

== ENCOUNTER 2022-03-23 08:08 | Day surgery (SDC) | payer BC ==
[~2022-03-23] VITALS: Ht 177.8 cm; Wt 104.7 kg
[~2022-03-23 08:08] MED LIST changes: +LIDOCAINE 2% 100MG/5ML SDV (FOR ANES.) As Ordered ONE; +NS 1,000 ML IV ONE; +propofoL 200 MG/20 ML VIAL As Ordered ONE
[2022-03-23] MEDS ORDERED: NS 1,000 ML IV SCH (08:20)
[2022-03-23 09:25] VITALS: BP 131/68
== END 2022-03-23 09:53 | disposition home or self-care (01) ==
LOC: M OPP 08:08
PROVIDERS: ATTEND Surgery
DX: Z12.11 Encounter for screening for malignant neoplasm of colon (principal); I10 Essential (primary) hypertension; E78.00 Pure hypercholesterolemia, unspecified; Z79.02 Long term (current) use of antithrombotics/antiplatelets; Z79.1 Long term (current) use of non-steroidal anti-inflammatories (NSAID); Z79.899 Other long term (current) drug therapy; Z87.442 Personal history of urinary calculi

== ENCOUNTER → 2022-07-03 | Outpatient (REF) | payer BC ==
[~2022-07-03] MED LIST changes: -LIDOCAINE 2% 100MG/5ML SDV (FOR ANES.) As Ordered ONE; -NS 1,000 ML IV ONE; -propofoL 200 MG/20 ML VIAL As Ordered ONE
[2022-07-03 14:31] LABS: HEMATOCRIT 43.8 % (42.0-52.0); HEMOGLOBIN 14.7 g/dl (13.5-17.5); MEAN CORPUSCULAR HEMOGLOBIN 30.3 pg (27.0-33.0); MEAN CORPUSCULAR HGB CONC 33.6 g/dl (32.0-36.5); MEAN CORPUSCULAR VOLUME 90.3 fl (80.0-96.0); PLATELET COUNT, AUTOMATED 196 10^3/uL (150-450); RED BLOOD COUNT 4.85 10^6/uL (4.30-6.10); WHITE BLOOD COUNT 9.8 10^3/uL (4.0-10.0)
[2022-07-03 15:31] LABS: ALBUMIN 4.2 GM/DL (3.2-5.2); ALT/SGPT 58 U/L (12-78); BILIRUBIN,TOTAL 0.5 MG/DL (0.2-1.0); BLOOD UREA NITROGEN 17 MG/DL (7-18); CALCIUM LEVEL 8.9 MG/DL (8.5-10.1); CARBON DIOXIDE LEVEL 29 MEQ/L (21-32); CHLORIDE LEVEL 106 MEQ/L (98-107); CHOLESTEROL LEVEL 146 MG/DL (<200); CHOLESTEROL RISK RATIO 3.318 (<5); CREATININE FOR GFR 0.99 MG/DL (0.70-1.30); GLOMERULAR FILTRATION RATE > 60.0 (>60); GLUCOSE, FASTING 87 MG/DL (70-100); HDL CHOLESTEROL 44 MG/DL (>40); LDL CHOLESTEROL 85 MG/DL (<100); NON-HDL-C 102 MG/DL; POTASSIUM SERUM 4.6 MEQ/L (3.5-5.1); SODIUM LEVEL 139 MEQ/L (136-145); TOTAL PROTEIN 6.9 GM/DL (6.4-8.2); TRIGLYCERIDES LEVEL 87 MG/DL (<150)
[2022-07-03 22:52] LABS: HEMOGLOBIN A1c 5.9 %
== END ==
LOC: M SFHCPLAZ 08:35
PROVIDERS: ATTEND Nurse Practitioner Adult Health
DX: I11.9 Hypertensive heart disease without heart failure (principal); E78.2 Mixed hyperlipidemia; Z00.00 Encounter for general adult medical examination without abnormal findings; Z13.1 Encounter for screening for diabetes mellitus

== ENCOUNTER → 2023-01-08 | Outpatient (REF) | payer BC ==
[2023-01-08 13:02] LABS: ALBUMIN 4.3 G/DL (3.2-5.2); ALKALINE PHOSPHATASE 87 U/L (46-116); ALT/SGPT 81 U/L (7.0-40); AST/SGOT 39 U/L (<34); BILIRUBIN,TOTAL 0.4 MG/DL (0.3-1.2); BLOOD UREA NITROGEN 25 MG/DL (9-23); CALCIUM LEVEL 9.2 MG/DL (8.5-10.1); CARBON DIOXIDE LEVEL 28 MMOL/L (20-31); CHLORIDE LEVEL 105 MMOL/L (98-107); CHOLESTEROL LEVEL 155 MG/DL (<200); CHOLESTEROL RISK RATIO 3.32 (<5); CREATININE FOR GFR 1.06 MG/DL (0.70-1.30); GLOMERULAR FILTRATION RATE > 60.0 (>60); GLUCOSE, FASTING 104 MG/DL (60-100); HDL CHOLESTEROL 46.6 MG/DL (>40); LDL CHOLESTEROL 85.4 MG/DL (<100); NON-HDL-C 108.4 MG/DL; POTASSIUM SERUM 4.6 MMOL/L (3.5-5.1); SODIUM LEVEL 140 MMOL/L (136-145); TOTAL PROTEIN 6.9 G/DL (5.7-8.2); TRIGLYCERIDES LEVEL 115 MG/DL (<150)
== END ==
LOC: M LAB REF 12:31 → M LABDRWAD 12:31
PROVIDERS: ATTEND Physician Assistant
DX: I10 Essential (primary) hypertension (principal); E78.00 Pure hypercholesterolemia, unspecified

== ENCOUNTER → 2023-07-11 | Outpatient (REF) | payer BC ==
[2023-07-11 15:19] LABS: HEMATOCRIT 45.8 % (42.0-52.0); HEMOGLOBIN 15.1 g/dl (13.5-17.5); MEAN CORPUSCULAR HEMOGLOBIN 29.8 pg (27.0-33.0); MEAN CORPUSCULAR VOLUME 90.5 fl (80.0-96.0); PLATELET COUNT, AUTOMATED 208 10^3/uL (150-450); RED BLOOD COUNT 5.06 10^6/uL (4.30-6.10); WHITE BLOOD COUNT 8.9 10^3/uL (4.0-10.0)
[2023-07-11 15:45] LABS: ALBUMIN 4.1 G/DL (3.2-5.2); ALKALINE PHOSPHATASE 79 U/L (46-116); ALT/SGPT 61 U/L (7.0-40); AST/SGOT 34 U/L (<34); BILIRUBIN,TOTAL 0.7 MG/DL (0.3-1.2); BLOOD UREA NITROGEN 24 MG/DL (9-23); CALCIUM LEVEL 9.3 MG/DL (8.5-10.1); CARBON DIOXIDE LEVEL 27 MMOL/L (20-31); CHLORIDE LEVEL 105 MMOL/L (98-107); CHOLESTEROL LEVEL 169 MG/DL (<200); CHOLESTEROL RISK RATIO 3.75 (<5); CREATININE FOR GFR 1.04 MG/DL (0.70-1.30); GLOMERULAR FILTRATION RATE > 60.0 (>60); GLUCOSE, FASTING 96 MG/DL (60-100); LDL CHOLESTEROL 109.6 MG/DL (<100); POTASSIUM SERUM 4.6 MMOL/L (3.5-5.1); SODIUM LEVEL 140 MMOL/L (136-145); TOTAL PROTEIN 6.9 G/DL (5.7-8.2); TRIGLYCERIDES LEVEL 72 MG/DL (<150)
[2023-07-11 16:02] LABS: HEMOGLOBIN A1c 5.8 % (4.0-6.0)
== END ==
LOC: M SFHCPLAZ 08:44
PROVIDERS: ATTEND Nurse Practitioner Adult Health
DX: Z00.00 Encounter for general adult medical examination without abnormal findings (principal); I11.9 Hypertensive heart disease without heart failure; Z13.1 Encounter for screening for diabetes mellitus; E78.2 Mixed hyperlipidemia

== ENCOUNTER → 2024-01-15 | Outpatient (REF) | payer BC ==
[2024-01-15 12:56] LABS: ALKALINE PHOSPHATASE 89 U/L (46-116); ALT/SGPT 83 U/L (7.0-40); AST/SGOT 37 U/L (<34); BILIRUBIN,TOTAL 0.6 MG/DL (0.3-1.2); BLOOD UREA NITROGEN 19 MG/DL (9-23); CALCIUM LEVEL 9.2 MG/DL (8.5-10.1); CARBON DIOXIDE LEVEL 27 MMOL/L (20-31); CHLORIDE LEVEL 107 MMOL/L (98-107); CHOLESTEROL LEVEL 132 MG/DL (<200); CHOLESTEROL RISK RATIO 3.45 (<5); CREATININE FOR GFR 0.97 MG/DL (0.70-1.30); GLOMERULAR FILTRATION RATE > 60.0 (>60); GLUCOSE, FASTING 97 MG/DL (60-100); HDL CHOLESTEROL 38.2 MG/DL (>40); LDL CHOLESTEROL 81.2 MG/DL (<100); MAGNESIUM LEVEL 1.8 MG/DL (1.8-2.4); NON-HDL-C 93.8 MG/DL; POTASSIUM SERUM 4.3 MMOL/L (3.5-5.1); SODIUM LEVEL 141 MMOL/L (136-145); TOTAL PROTEIN 6.6 G/DL (5.7-8.2); TRIGLYCERIDES LEVEL 63 MG/DL (<150)
[2024-01-15 12:57] LABS: HEMATOCRIT 44.4 % (42.0-52.0); HEMOGLOBIN 14.7 g/dl (13.5-17.5); MEAN CORPUSCULAR HEMOGLOBIN 30.2 pg (27.0-33.0); MEAN CORPUSCULAR HGB CONC 33.1 g/dl (32.0-36.5); MEAN CORPUSCULAR VOLUME 91.2 fl (80.0-96.0); PLATELET COUNT, AUTOMATED 193 10^3/uL (150-450); RED BLOOD COUNT 4.87 10^6/uL (4.30-6.10); WHITE BLOOD COUNT 8.2 10^3/uL (4.0-10.0)
[2024-01-15 13:31] LABS: HEMOGLOBIN A1c 5.8 % (4.0-6.0)
== END ==
LOC: M SFHCPLAZ 07:56
PROVIDERS: ATTEND Nurse Practitioner Adult Health
DX: I11.9 Hypertensive heart disease without heart failure (principal); Z13.1 Encounter for screening for diabetes mellitus; E78.2 Mixed hyperlipidemia

== ENCOUNTER → 2024-09-17 | Outpatient (CLI) | payer BC | LOC: M CARPUL 10:27 | PROVIDERS: ATTEND Nurse Practitioner Adult Health | DX: R06.02 Shortness of breath (principal) ==

== ENCOUNTER → 2024-09-26 | Outpatient (CLI) | payer BC | LOC: M CARPUL 09:04 | PROVIDERS: ATTEND Physician Assistant | DX: R06.02 Shortness of breath (principal); I51.7 Cardiomegaly; I50.30 Unspecified diastolic (congestive) heart failure ==

== ENCOUNTER → 2024-10-08 | Outpatient (CLI) | payer BC ==
[~2024-10-08] MED LIST changes: +METHACHOLINE KIT (6 VIAL.NEB PREMIX) INH ONE
== END ==
LOC: M CARPUL 08:31
PROVIDERS: ATTEND Nurse Practitioner Adult Health
DX: R06.02 Shortness of breath (principal)
CPT/HCPCS: 94070; J7674

== ENCOUNTER → 2024-10-29 | Outpatient (CLI) | payer BC ==
[~2024-10-29] MED LIST changes: -METHACHOLINE KIT (6 VIAL.NEB PREMIX) INH ONE
[2024-10-29 13:43] LABS: HEMATOCRIT 44.4 % (42.0-52.0); HEMOGLOBIN 15.2 g/dl (13.5-17.5); MEAN CORPUSCULAR HEMOGLOBIN 30.6 pg (27.0-33.0); MEAN CORPUSCULAR HGB CONC 34.2 g/dl (32.0-36.5); MEAN CORPUSCULAR VOLUME 89.5 fl (80.0-96.0); PLATELET COUNT, AUTOMATED 192 10^3/uL (150-450); RED BLOOD COUNT 4.96 10^6/uL (4.30-6.10); WHITE BLOOD COUNT 8.1 10^3/uL (4.0-10.0)
[2024-10-29 14:03] LABS: ALBUMIN 4.1 G/DL (3.2-5.2); ALKALINE PHOSPHATASE 88 U/L (40-129); ALT/SGPT 53 U/L (7.0-40); AST/SGOT 31 U/L (<34); BILIRUBIN,TOTAL 0.6 MG/DL (0.3-1.2); BLOOD UREA NITROGEN 20 MG/DL (9-23); CALCIUM LEVEL 9.3 MG/DL (8.5-10.1); CARBON DIOXIDE LEVEL 25 MMOL/L (20-31); CHLORIDE LEVEL 108 MMOL/L (98-107); CHOLESTEROL LEVEL 143 MG/DL (<200); CHOLESTEROL RISK RATIO 3.08 (<5); GLOMERULAR FILTRATION RATE > 60.0 (>60); GLUCOSE, FASTING 87 MG/DL (60-100); HDL CHOLESTEROL 46.4 MG/DL (>40); LDL CHOLESTEROL 81.2 MG/DL (<100); MAGNESIUM LEVEL 1.8 MG/DL (1.8-2.4); NON-HDL-C 96.6 MG/DL; POTASSIUM SERUM 4.3 MMOL/L (3.5-5.1); SODIUM LEVEL 143 MMOL/L (136-145); TOTAL PROTEIN 7.2 G/DL (5.7-8.2); TRIGLYCERIDES LEVEL 77 MG/DL (<150)
[2024-10-29 14:17] LABS: HEMOGLOBIN A1c 5.7 % (4.0-6.0)
[2024-10-29 14:20] LABS: CREATININE, URINE 105.6 MG/DL; MAU/CREAT RATIO 3.7 MCG/MG (0.0-30.0)
== END ==
LOC: M ADAMS 09:25
PROVIDERS: ATTEND Nurse Practitioner Adult Health
DX: I11.9 Hypertensive heart disease without heart failure (principal); E78.2 Mixed hyperlipidemia; E74.39 Other disorders of intestinal carbohydrate absorption

== ENCOUNTER → 2025-02-20 | Outpatient (CLI) | payer BC ==
[~2025-02-20] MED LIST changes: -FLOM0.4C39 PO; +TAMS-18 PO
== END ==
LOC: M EKG 10:07
PROVIDERS: ATTEND Physician Assistant
DX: I49.5 Sick sinus syndrome (principal)

== ENCOUNTER → 2025-02-20 | Outpatient (CLI) | payer BC ==
[2025-02-20 13:58] LABS: BLOOD UREA NITROGEN 19 MG/DL (9-23); CALCIUM LEVEL 8.8 MG/DL (8.5-10.1); CARBON DIOXIDE LEVEL 27 MMOL/L (20-31); CHLORIDE LEVEL 104 MMOL/L (98-107); CREATININE FOR GFR 0.91 MG/DL (0.70-1.30); GLOMERULAR FILTRATION RATE > 90.0 (>60); GLUCOSE, FASTING 130 MG/DL (60-100); POTASSIUM SERUM 4.3 MMOL/L (3.5-5.1); SODIUM LEVEL 141 MMOL/L (136-145)
== END ==
LOC: M ADAMS 08:13
PROVIDERS: ATTEND Physician Assistant
DX: I50.32 Chronic diastolic (congestive) heart failure (principal)

== ENCOUNTER → 2025-04-15 | Outpatient (REF) | payer BC ==
[2025-04-15 14:19] LABS: ALT/SGPT 52.0 U/L (7.0-40); AST/SGOT 35.0 U/L (<34); CHOLESTEROL LEVEL 123.0 MG/DL (<200); CHOLESTEROL RISK RATIO 2.77 (<5); LDL CHOLESTEROL 65.7 MG/DL (<100); NON-HDL-C 78.7 MG/DL; TRIGLYCERIDES LEVEL 65.0 MG/DL (<150)
== END ==
LOC: M LABDRWAD 13:16
PROVIDERS: ATTEND Physician Assistant
DX: E78.00 Pure hypercholesterolemia, unspecified (principal)